=== PATIENT | male | born 1990 | race Caucasian/White ===

== ENCOUNTER 2018-10-03 13:02 | Emergency (ER) | payer MEDICAID, OTHER ==
[~2018-10-03] VITALS: Ht 190.5 cm; Wt 103.1 kg
[~2018-10-03 13:02] MED LIST: BENZ1TAB7 PO; CITA20TA8 PO; HALO10TA PO
[2018-10-03 13:19] VITALS: Ht 190.5 cm; Wt 103.1 kg
--- NOTE | 2018-10-03 15:21 | ERD ---
ER Documentation Chief Complaint Chief Complaint CIPRIANO, 'I want to hurt myself & going to cut myself w/razor", possible ETOH HPI 28-year-old man with history of depression states he wants to cut himself with a razor, he has been off of his medications and also has a history of alcohol abuse and admits to drinking alcohol today. He denies trauma, no fevers or chills, no vomiting or diarrhea. HPI was limited as patient did not want to provide any further details or specifics about today's issues or past medical history. ROS All systems reviewed and are negative except as per history of present illness. Medications Home Meds Reported Medications Citalopram Hydrobromide* (Citalopram Hydrobromide*) 20 Mg Tablet, 20 MG PO DAILY, #30 TAB 02/19/16 Benztropine Mesylate* (Benztropine Mesylate*) 1 Mg Tablet, 1 MG PO BID, TAB 02/19/16 Haloperidol* (Haloperidol*) 10 Mg Tablet, 10 MG PO QHS, TAB 02/19/16 Allergies Allergies: Coded Allergies: No Known Allergy (Unverified , 02/19/16) PMhx/Soc History of Surgery: No Anesthesia Reaction: No Hx Neurological Disorder: No Hx Respiratory Disorders: No Hx Cardiac Disorders: No Hx Miscellaneous Medical Probl: No Hx Alcohol Use: Yes Hx Substance Use: Yes (Meth/Heroin) Hx Tobacco Use: Yes Smoking Status: Current every day smoker FmHx Family History: No diabetes Physical Exam Vitals Vital Signs Date Temp Pulse Resp B/P (MAP) Pulse Ox O2 O2 Flow FiO2 Time Delivery Rate 10/03/18 98.3 98 16 109/72 97 Room Air 13:30 (84) 10/03/18 98.2 103 18 103/68 96 13:19 (80) Physical Exam Const: No acute distress, afebrile Head: Atraumatic Eyes: Normal Conjunctiva ENT: Normal External Ears, Nose and Mouth. Neck: Full range of motion. No meningismus. Resp: Clear to auscultation bilaterally Cardio: Regular rate and rhythm, no murmurs Abd: Soft, non tender, non distended. Normal bowel sounds Skin: No petechiae or rashes Back: No midline or flank tenderness Ext: No cyanosis, or edema Neur: Awake and alert x3, no focal deficits or facial asymmetry, gait stable Psych: Depressed affect Result Diagram: 10/03/18 1356 10/03/18 1356 Results 24 hrs Laboratory Tests Test 10/03/18 13:56 White Blood Count 7.8 10^3/ul Red Blood Count 5.39 10^6/ul Hemoglobin 16.0 g/dl Hematocrit 46.8 % Mean Corpuscular Volume 86.8 fl Mean Corpuscular Hemoglobin 29.7 pg Mean Corpuscular Hemoglobin Concent 34.2 g/dl Red Cell Distribution Width 11.9 % Platelet Count 253 10^3/UL Mean Platelet Volume 10.7 fl Immature Granulocytes % 0.300 % Neutrophils % 66.8 % Lymphocytes % 24.4 % Monocytes % 7.0 % Eosinophils % 0.9 % Basophils % 0.6 % Nucleated Red Blood Cells % 0.0 /100WBC Immature Granulocytes # 0.020 10^3/ul Neutrophils # 5.2 10^3/ul Lymphocytes # 1.9 10^3/ul Monocytes # 0.6 10^3/ul Eosinophils # 0.1 10^3/ul Basophils # 0.1 10^3/ul Nucleated Red Blood Cells # 0.0 10^3/ul Urine Color STRAW Urine Clarity CLEAR Urine pH 6.0 Urine Specific [place] 1.002 Urine Ketones NEGATIVE mg/dL Urine Nitrite NEGATIVE mg/dL Urine Bilirubin NEGATIVE mg/dL Urine Urobilinogen NEGATIVE mg/dL Urine Leukocyte Esterase NEGATIVE Brenda/ul Urine Hemoglobin NEGATIVE mg/dL Urine Glucose NEGATIVE mg/dL Urine Total Protein NEGATIVE mg/dl Sodium Level 142 mmol/L Potassium Level 3.7 mmol/L Chloride Level 107 mmol/L Carbon Dioxide Level 25 mmol/L Anion Gap 10 Blood Urea Nitrogen 11 mg/dl Creatinine 0.93 mg/dl Est Glomerular Filtrat Rate mL/min > 60 mL/min Glucose Level 108 mg/dl Calcium Level 9.3 mg/dl Total Bilirubin 0.4 mg/dl Direct Bilirubin 0.00 mg/dl Indirect Bilirubin 0.4 mg/dl Aspartate Amino Transf (AST/SGOT) 27 IU/L Alanine Aminotransferase (ALT/SGPT) 36 IU/L Alkaline Phosphatase 52 IU/L Total Protein 7.6 g/dl Albumin 4.6 g/dl Globulin 3.00 g/dl Albumin/Globulin Ratio 1.53 Salicylates Level < 1.0 mg/dl Urine Opiates Screen NEGATIVE Acetaminophen Level < 10.0 ug/ml Urine Barbiturates NEGATIVE Urine Amphetamines Screen NEGATIVE Urine Benzodiazepines Screen NEGATIVE Urine Cocaine Screen NEGATIVE Urine Cannabinoids NEGATIVE Ethyl Alcohol Level 131.0 mg/dl Procedures/MDM Security one-to-one watch was established. CBC and electrolytes are normal, liver function tests were unremarkable, drug screen negative, ethanol level elevated at 131 Patient's behavioral symptoms have stabilized while in the department. Patient is medically cleared and appropriate for psychiatric evaluation and work up. No e/o neurologic, toxic, infectious, or metabolic cause. Tele-psychiatrist evaluated the patient and recommended 5150 involuntary psychiatric hold. Observation Note: Time: 5 hours Family Hx: No Hypertension Evaluation: Multiple exams showed improving symptoms and no evidence of worsening mental status PET has been contacted and they will see the patient and initiate transfer to [facility] facility. Departure Diagnosis: Primary Impression: Alcohol abuse Additional Impressions: Alcohol intoxication Complication of substance-induced condition: uncomplicated Qualified Codes: F10.920 - Alcohol use, unspecified with intoxication, uncomplicated Psychiatric illness Suicidal ideation Condition: Stable LONI MONK MD Oct 03, 2018 15:21
[2018-10-03] MEDS ORDERED: ZIPR40CA2 PO (22:44)
--- NOTE | 2018-10-04 14:46 | EN ---
Date/Time of Note Date/Time of Note DATE: 10/04/18 TIME: 14:45 ER Progress Note Psychiatric Observation Note: Indication: Suicidal ideation Duration: Greater than 10 hours Family history: As documented in original HPI The patient was observed with serial exams over the above timeframe. The patient continued to be well-appearing, and observation continued without complication. All other needs have been met during emergency department stay. Routine psychiatric medications ordered: No note placed by telemetry medicine psychiatry. Telemetry medicine psychiatry service has been called to have the provider placed the note in [employer]. We do not have access to this note. Hold status: Telemetry medicine psychiatry has recommended 5150 hold verbally. We are awaiting the formal document to be placed. P.m. RT has been called. Placement status: Pending PMRT evaluation. ABDULAZIZ AGUIAR MD Oct 04, 2018 14:46
--- NOTE | 2018-10-05 08:48 | PSY ---
Date/Time of Note Date/Time of Note DATE: 10/05/18 TIME: 08:44 Psychiatric Subjective Eval Consent Pt consented to telemedicine: Yes Subjective Evaluation Patient location: emergency Chief Complaint: BIBA, 'I want to hurt myself & going to cut myself w/razor", possible ETOH Reason for consult: Suicidal ideation History of present illness 28 yo male with hx psychosis and alcohol use self presented to ED c/o acitve SI with a plan to cut himself Pt is uncooperative with the eval, he keeps answering ost of the questions with the word "suicidal" and then says :"I dont' want to talk to you anymore". Hosiile, guarded, irritable. Past psychiatric history per pt, last inpt was in July 2018. He is not on any meds, states, he was not prescribed any. Hospitalization: Suicidal Attempt(s) Medical history Problems Medical Problems: (1) Alcohol abuse Status: Acute (2) Alcohol intoxication Status: Acute (3) Alcoholic intoxication Status: Acute (4) Anxiety Status: Acute (5) Hypernatremia Status: Acute (6) Psychiatric illness Status: Acute (7) Suicidal ideation Status: Acute (8) Suicidal ideation Status: Acute Allergies: Coded Allergies: No Known Allergy (Unverified , 10/03/18) Substance Abuse Substance abuse history: Yes Prior substance abuse treatmen: Yes Social History Marital status: single DPA/Conservatorship: No Psychiatric Objective Eval Review of Systems: Review of Systems: Not Applicable Mental Status Examination: Appearance: Disheveled Eye Contact: Poor Behavior: Hostile, Guarded Speech: Clear AFFECT: Guarded Mood: Angry, Irritable Though Process: Perseverative Thought Content: Hallucinations Suicidal: Yes Homicidal: No Cognition: Alert Insight: Impared Judgement: Impared Laboratory Results Laboratory Tests Test 10/03/18 13:56 White Blood Count 7.8 10^3/ul Red Blood Count 5.39 10^6/ul Hemoglobin 16.0 g/dl Hematocrit 46.8 % Mean Corpuscular Volume 86.8 fl Mean Corpuscular Hemoglobin 29.7 pg Mean Corpuscular Hemoglobin Concent 34.2 g/dl Red Cell Distribution Width 11.9 % Platelet Count 253 10^3/UL Mean Platelet Volume 10.7 fl Immature Granulocytes % 0.300 % Neutrophils % 66.8 % Lymphocytes % 24.4 % Monocytes % 7.0 % Eosinophils % 0.9 % Basophils % 0.6 % Nucleated Red Blood Cells % 0.0 /100WBC Immature Granulocytes # 0.020 10^3/ul Neutrophils # 5.2 10^3/ul Lymphocytes # 1.9 10^3/ul Monocytes # 0.6 10^3/ul Eosinophils # 0.1 10^3/ul Basophils # 0.1 10^3/ul Nucleated Red Blood Cells # 0.0 10^3/ul Urine Color STRAW Urine Clarity CLEAR Urine pH 6.0 Urine Specific [place] 1.002 Urine Ketones NEGATIVE mg/dL Urine Nitrite NEGATIVE mg/dL Urine Bilirubin NEGATIVE mg/dL Urine Urobilinogen NEGATIVE mg/dL Urine Leukocyte Esterase NEGATIVE Brenda/ul Urine Hemoglobin NEGATIVE mg/dL Urine Glucose NEGATIVE mg/dL Urine Total Protein NEGATIVE mg/dl Sodium Level 142 mmol/L Potassium Level 3.7 mmol/L Chloride Level 107 mmol/L Carbon Dioxide Level 25 mmol/L Anion Gap 10 Blood Urea Nitrogen 11 mg/dl Creatinine 0.93 mg/dl Est Glomerular Filtrat Rate mL/min > 60 mL/min Glucose Level 108 mg/dl Calcium Level 9.3 mg/dl Total Bilirubin 0.4 mg/dl Direct Bilirubin 0.00 mg/dl Indirect Bilirubin 0.4 mg/dl Aspartate Amino Transf (AST/SGOT) 27 IU/L Alanine Aminotransferase (ALT/SGPT) 36 IU/L Alkaline Phosphatase 52 IU/L Total Protein 7.6 g/dl Albumin 4.6 g/dl Globulin 3.00 g/dl Albumin/Globulin Ratio 1.53 Salicylates Level < 1.0 mg/dl Urine Opiates Screen NEGATIVE Acetaminophen Level < 10.0 ug/ml Urine Barbiturates NEGATIVE Urine Amphetamines Screen NEGATIVE Urine Benzodiazepines Screen NEGATIVE Urine Cocaine Screen NEGATIVE Urine Cannabinoids NEGATIVE Ethyl Alcohol Level 131.0 mg/dl Assessment and Plan Assessment/Diagnosis Diagnosis UNSPECIFIED PSYCHOSIS. Recommendation/Plan Medication Management ZYPREXA 10 MG IM + ATIVAN 2 MG IM + BENADRYL 50 MG IM PRN Q 12 AGITATION CIWA PROTOCOL Multiple antipsychotics: Yes Discharge Disposition: Psychiatric inpatient Legal Status: Place involuntary hold Other D/W DR KOENIG 5150 FOR DTS. PLEASE TRANSFER TO INPTPSYCH. YARIEL NOVAK MD Oct 05, 2018 08:48
[2018-10-05 12:56] VITALS: BP 130/78; PULSE 80; RESP 20
== END 2018-10-05 13:30 ==
LOC: E/R 13:02
DX: F10.120 Alcohol abuse with intoxication, uncomplicated (principal); F17.210 Nicotine dependence, cigarettes, uncomplicated; F99 Mental disorder, not otherwise specified
CPT/HCPCS: 80053; 80307; 81003; 85025; Z7502